=== PATIENT | female | born 1945 | race Caucasian/White ===

== ENCOUNTER 2019-11-24 06:51 | Day surgery (SDC) | payer MEDICARE ==
[2019-11-24] MEDS ORDERED: Midazolam 1 MG/ML 2 ML SDV ONE (07:09)
[2019-11-24] MEDS ORDERED: Propofol 200 MG/20 ML SDV ONE (07:09)
[2019-11-24] MEDS ORDERED: fentaNYL 100 MCG/2 ML SDV ONE (07:09)
[2019-11-24] MEDS ORDERED: Dextrose 5%-Lactated Ringers 1,000 ML IV SCH (07:30)
[2019-11-24 09:10] VITALS: BP 110/74; PULSE 69
--- NOTE | 2019-12-04 07:56 | OR ---
DATE OF PROCEDURE: 11/24/2019 SURGEON: Adonis Stone MD PREOPERATIVE DIAGNOSIS: Indications for screening colonoscopy. POSTOPERATIVE DIAGNOSIS: Single small polyp in hepatic flexure of colon. OPERATIVE PROCEDURES: Flexible colonoscopy with polypectomy by snare technique. ANESTHESIA: IV sedation. INDICATION FOR PROCEDURE: This 74-year-old is referred for a screening colonoscopy. She has a family history of colon carcinoma in her mother. The plan is to proceed with flexible colonoscopy with biopsies and/or polypectomy as indicated. Potential risks including bleeding and perforation were discussed, and the patient wishes to proceed. DETAILS OF PROCEDURE: The patient was taken to the operative room and placed in a left lateral decubitus position. IV sedation was administered, after which the initial digital rectal exam was performed and was unremarkable. Colonoscope was then passed into the rectum with retroflexion revealing uncomplicated hemorrhoidal columns. The scope was eventually passed to the level of the cecum with the prep being fairly good. There were no diverticula and no areas of colitis. There was a single small polyp roughly in the range of 2 mm in the hepatic flexure of the colon. This was removed by snare technique and it was retrieved in somewhat fragmented manner and sent for histologic evaluation. No other polyps or other signs of neoplasia were seen. The scope was then withdrawn and the above findings reconfirmed. Recommendation will be to repeat the colonoscopy in 3 or 5 years depending on pathology. If this is a hyperplastic polyp, she can go with 5 years. If it is an adenomatous polyp of some sort, then a 3-year interval would be appropriate. Adonis Stone MD /[id number]
== END 2019-11-24 09:29 | disposition home or self-care (01) ==
LOC: JP.SDS 06:51
PROVIDERS: ATTEND Surgery
DX: Z12.11 Encounter for screening for malignant neoplasm of colon (principal); D12.3 Benign neoplasm of transverse colon; K64.9 Unspecified hemorrhoids; Z80.0 Family history of malignant neoplasm of digestive organs; Z88.1 Allergy status to other antibiotic agents
CPT/HCPCS: 45385; 88305; J2250; J2704; J3010; J7121